=== PATIENT | female | born 1975 | race Caucasian/White ===

== ENCOUNTER → 2016-10-02 | Outpatient (CLI) | payer BC ==
--- NOTE | 2016-10-02 09:54 | US ---
EXAMINATION TYPE: US abdomen complete DATE OF EXAM: 10/02/2016 8:28 AM COMPARISON: CT in PACS June 14, 2013 CLINICAL HISTORY: R10.13 EPIGASTRIC PAIN. Pt states epigastric pain x 3 months EXAM MEASUREMENTS: Liver Length: 13.5 cm Gallbladder Wall: 0.2 cm CBD: 0.2 cm Spleen: 10.3 cm Right Kidney: 10.2 x 4.2 x 5.1 cm Left Kidney: 11.2 x 5.1 x 5.0 cm TECHNOLOGIST IMPRESSION: Pancreas: wnl Liver: One of two lesions visualized on CT, visualized by ultrasound right, lateral lobe= 1.6 x 1.0 x 1.4 cm simple appearing cyst. Otherwise liver appeared wnl Gallbladder: Appeared slightly contracted, pt states she is NPO/ Lumen clear Evidence for sonographic Lemus's sign: No CBD: wnl Spleen: wnl Right Kidney: wnl Left Kidney: wnl Upper IVC: wnl Abd Aorta: wnl The liver is slightly heterogeneous. A 1.6 cm simple appearing cyst right hepatic lobe is confirmed. Other lesion on CT is not definitively seen but presumed benign as is subcentimeter. Intrahepatic por tion of the IVC and visualized abdominal aorta are within normal limits. There is no evidence of cho lelithiasis. Common bile duct is unremarkable. The visualized portions of the pancreas are homogeno us. The spleen is not enlarged on ultrasound versus was enlarged on prior CT. Kidneys are symmetric and free of hydronephrosis. No renal lesions are seen. IMPRESSION: No significant finding is seen to account for patient's symptoms.
--- NOTE | 2016-10-02 09:59 | FL ---
EXAMINATION TYPE: FL UGI DATE OF EXAM: 10/02/2016 9:51 AM COMPARISON: CT abdomen and pelvis June 14, 2013 HISTORY: Epigastric pain per order. Upper abdominal pain for 3 months with some improvement with stom ach medicine. TECHNIQUE: A double contrast UGI study is performed. A total of 1.4 minutes of fluoroscopic time was utilized during procedure. FINDINGS: Physical Therapist Center Manager image of the abdomen shows no gross abnormality. The esophagus shows normal motility and emptying into the stomach. No evidence of hiatal hernia or s tricture noted. The stomach shows normal distensibility and peristalsis. Mild diffuse prominence of folds is felt pre sent. No evidence of any intraluminal mass or isidro ulcer disease. A few episodes of gastroesophagea l reflux are seen during real-time performance of study. The duodenal bulb, sweep, and proximal small bowel loops are unremarkable. IMPRESSION: Suspect mild gastritis in the fundus and body extending towards the greater curvature, no isidro ulcer disease. Gastroesophageal reflux is observed.
== END | disposition home or self-care (01) ==
LOC: RADUSWWP 08:10
PROVIDERS: ATTEND Family Medicine
DX: R10.13 Epigastric pain (principal)
CPT/HCPCS: 74240; 76700

== ENCOUNTER → 2017-11-29 | Outpatient (CLI) | payer BC ==
--- NOTE | 2017-11-30 11:38 | MM ---
Reason for exam: screening (asymptomatic). Last mammogram was performed 7 years and 1 month ago. History: Took hormonal contraceptives for 16 years. Physical Findings: A clinical breast exam by your physician is recommended on an annual basis and results should be correlated with mammographic findings. MG Screening Mammo w CAD Bilateral CC and MLO view(s) were taken. Prior study comparison: February 27, 2016, mammogram, performed at [facility]. There are scattered fibroglandular densities. No suspicious abnormality. No significant changes when compared with prior studies. ASSESSMENT: Negative, BI-RAD 1 RECOMMENDATION: Routine screening mammogram of both breasts in 1 year.
== END | disposition home or self-care (01) ==
LOC: RADMAMWWP 08:07
PROVIDERS: ATTEND Family Medicine
DX: Z12.31 Encounter for screening mammogram for malignant neoplasm of breast (principal)
CPT/HCPCS: 77067

== ENCOUNTER → 2019-07-08 | Outpatient (CLI) | payer BC ==
--- NOTE | 2019-07-10 08:00 | CT ---
EXAMINATION TYPE: CT abdomen w con DATE OF EXAM: 07/08/2019 COMPARISON: 06/14/2013 HISTORY: Liver cyst CONTRAST: CT scan of the abdomen is performed with Oral Contrast and with IV Contrast, patient injected with 10 0 mL of Isovue 300. FINDINGS: LUNG BASES-: No visible nodule. No infiltrate. LIVER/GB: No calcified gallstones. 3 hepatic cysts are noted the largest of which is seen within th e anterior segment right hepatic lobe measuring 1.2 cm. No solid hepatic lesions are detected at this time. Biliary tree is of normal caliber. PANCREAS: No inflammation. No distinct mass. SPLEEN: No splenic enlargement. No lesion seen. ADRENALS: No nodule. No thickening. KIDNEYS/BLADDER: No hydronephrosis. No nephrolithiasis. No distinct renal mass. Urinary bladder g rossly unremarkable. BOWEL: Normal bowel caliber. No inflammation. LYMPH NODES: No greater than 1cm abdominal or pelvic lymph nodes are appreciated. AORTA: No significant abnormality. OSSEOUS STRUCTURES: No significant abnormality is seen. OTHER: No significant additional abnormality is seen. IMPRESSION: 1. 3 hepatic cysts are noted.
== END | disposition home or self-care (01) ==
LOC: RADCTMAIN 09:58
PROVIDERS: ATTEND Physician Assistant
DX: K76.89 Other specified diseases of liver (principal)
CPT/HCPCS: 74160; Q9967